=== PATIENT | female | born 1990 | race Caucasian/White ===

== ENCOUNTER 2018-10-05 23:40 | Inpatient (IN) | payer OTHER, BC ==
[2018-10-06] MEDS ORDERED: LACTATED RINGER'S 1,000 ML IV (00:19)
[2018-10-06] MEDS ORDERED: MISOPROSTOL 200 MCG TAB PR ×2 (00:30→20:00)
[2018-10-06] MEDS ORDERED: METHYLERGONOVINE 0.2 MG INJ IM ×2 (00:30→20:00)
[2018-10-06] MEDS ORDERED: CARBOPROST 250 MCG INJ IM ×2 (00:30→20:00)
[2018-10-06] MEDS ORDERED: OXYTOCIN 30 UNITS/LR 500 ML IV ×2 (00:30→20:00)
[2018-10-06] MEDS ORDERED: BUTORPHANOL 2 MG INJ IV (00:30)
[2018-10-06 00:41] LABS: RUPTURE FETAL MEMBRANES POSITIVE (NEGATIVE)
[2018-10-06] MEDS: LACTATED RINGER'S 1,000 ML IV ×3 (00:51→12:56)
[2018-10-06 00:57] LABS: ADD UMIC YES; UR ASCORBIC ACID NEGATIVE (NEGATIVE); UR BACTERIA FEW /HPF (NONE SEEN); UR BILIRUBIN (Dip) NEGATIVE (NEGATIVE); UR BLOOD (Dip) 2+ mg/dL (NEGATIVE); UR CLARITY CLOUDY (CLEAR); UR COLOR RED (YELLOW); UR GLUCOSE (Dip) NEGATIVE (NEGATIVE); UR KETONES (Dip) NEGATIVE (NEGATIVE); UR LEUKOCYTE ESTERASE (Dip) 1+ Leu/ul (NEGATIVE); UR MUCUS FEW /HPF (NONE SEEN); UR NITRITE (Dip) NEGATIVE (NEGATIVE); UR RBC 21 /HPF (0-5); UR SPECIFIC GRAVITY (Dip) 1.008 (1.003-1.030); UR SQUAMOUS EPITHELIAL CELL MANY /HPF (FEW); UR TOTAL PROTEIN (Dip) 2+ mg/dl (NEGATIVE); UR UROBILINOGEN (Dip) NEGATIVE (NEGATIVE); UR WBC 30 /HPF (0-5)
[2018-10-06] MEDS: LABETALOL HCL 20MG INJ IV ×2 (00:58→01:57)
[2018-10-06] MEDS: AMPICILLIN 2 GM/NS (PMX) 100 ML IV (01:14)
[2018-10-06 01:17] LABS: ADD MAN DIFF? NO
[2018-10-06 01:24] LABS: ABNORMAL IP MESSAGE 1; BASOPHIL # 0.1 10^3/ul (0.0-0.1); BASOPHILS % 0.6 % (0.0-2.0); EOSINOPHILS # 0.1 10^3/ul (0.0-0.5); EOSINOPHILS % 1.2 % (0.0-7.0); HEMATOCRIT 38.4 % (37.0-47.0); HEMOGLOBIN 12.9 g/dl (12.0-16.0); LYMPHOCYTES # 2.3 10^3/ul (0.8-2.9); LYMPHOCYTES % 21.1 % (15.0-51.0); MEAN CORPUSCULAR HEMOGLOBIN 29.2 pg (29.0-33.0); MEAN CORPUSCULAR HGB CONC 33.6 g/dl (32.0-37.0); MEAN CORPUSCULAR VOLUME 86.9 fl (82.0-101.0); MEAN PLATELET VOLUME 13.2 fl (7.4-10.4); MONOCYTE # 0.7 10^3/ul (0.3-0.9); MONOCYTES % 6.4 % (0.0-11.0); NEUTROPHIL # 7.5 10^3/ul (1.6-7.5); PLATELET COUNT 157 10^3/UL (140-415); RED BLOOD COUNT 4.42 10^6/ul (4.20-5.40); RED CELL DISTRIBUTION WIDTH 13.6 % (11.5-14.5)
[2018-10-06 01:24] LABS: WHITE BLOOD COUNT 10.8 10^3/ul (4.8-10.8)
[2018-10-06 01:25] LABS: POSITIVE DIFF @See below
[2018-10-06 01:44] LABS: INR 0.88; PARTIAL THROMBOPLASTIN TIME 28.2 Sec (23.0-35.0); PT RATIO 0.9
[2018-10-06 01:52] LABS: ALANINE AMINOTRANSFERASE 25 IU/L (13-69); ALBUMIN 3.4 g/dl (3.3-4.9); ALBUMIN/GLOBULIN RATIO 1.06; ALKALINE PHOSPHATASE 140 IU/L (42-121); ANION GAP 10 (5-13); ASPARTATE AMINO TRANSFERASE 28 IU/L (15-46); BILIRUBIN,INDIRECT 0.3 mg/dl (0-1.1); BILIRUBIN,TOTAL 0.3 mg/dl (0.2-1.3); BLOOD UREA NITROGEN 10 mg/dl (7-20); CALCIUM 9.9 mg/dl (8.4-10.2); CARBON DIOXIDE 21 mmol/L (21-31); CHLORIDE 106 mmol/L (97-110); CREATININE 0.54 mg/dl (0.44-1.00); Estimated GFR > 60 mL/min (>60); GLUCOSE 94 mg/dl (70-220); SODIUM 137 mmol/L (135-144); TOTAL PROTEIN 6.6 g/dl (6.1-8.1); URIC ACID 6.6 mg/dl (3.1-7.9)
[2018-10-06] MEDS: MAGNESIUM SULFATE 4 GM/100 ML 100 ML IV (02:06)
[2018-10-06] MEDS: MAGNESIUM SULFATE 20 GM/500 ML 500 ML IV ×3 (02:17→22:30)
[2018-10-06 02:22] LABS: HEPATITIS B SURFACE ANTIGEN NEGATIVE (NEGATIVE)
[2018-10-06] MEDS: OXYTOCIN 30 UNITS/LR 500 ML IV ×4 (02:56→22:40)
[2018-10-06] MEDS: hydrALAzine 20 MG INJ IV (05:21)
[2018-10-06] MEDS: AMPICILLIN 1 GM/NS (PMX) 50 ML IV ×5 (05:24→20:30)
[2018-10-06] MEDS: ASPIRIN 81 MG TAB PO (05:41)
[2018-10-06 07:00] LABS: MAGNESIUM 3.8 mg/dl (1.7-2.5)
[2018-10-06] MEDS ORDERED: FENTAnyl 2MCG/ML-ROPIV 0.2% 100 ML (08:31)
[2018-10-06] MEDS ORDERED: NALOXONE (0.4 MG/ML) INJ IV (09:00)
[2018-10-06] MEDS ORDERED: ONDANSETRON 4 MG INJ IV ×2 (09:00→20:00)
[2018-10-06] MEDS ORDERED: FENTAnyl 2MCG/ML-ROPIV 0.2% 100 ML BAG EPI (09:00)
[2018-10-06] MEDS ORDERED: EPHEDrine SULFATE 50 MG/5 ML SYG IV (09:00)
[2018-10-06] MEDS ORDERED: DIPHENHYDRAMINE 50 MG INJ IV (09:00)
[2018-10-06 12:26] LABS: MAGNESIUM 5.4 mg/dl (1.7-2.5)
[2018-10-06] MEDS: MINERAL OIL LIGHT 10 ML VIAL TOP (19:37)
[2018-10-06] MEDS: LIDOCAINE 1% (MPF) 30 ML INJ INJ (19:37)
[2018-10-06] MEDS ORDERED: DIPHENHYDRAMINE 25 MG CAP PO (20:00)
[2018-10-06] MEDS ORDERED: MAGNESIUM HYDROXIDE 30ML CUP PO (20:00)
[2018-10-06] MEDS ORDERED: LANOLIN HPA 1 PKT TOP (20:00)
[2018-10-06] MEDS ORDERED: HYDROCODONE/APAP (5/325) TAB PO ×2 (20:00)
[2018-10-06] MEDS ORDERED: NA PHOSPHATE/BIPHOS 133 ML ENEMA PR (20:00)
[2018-10-06] MEDS ORDERED: METHYLERGONOVINE 0.2 MG TAB PO (20:00)
[2018-10-06] MEDS ORDERED: ZOLPIDEM 5 MG TAB PO (20:00)
[2018-10-06] MEDS ORDERED: IBUPROFEN 600 MG TAB PO (20:00)
[2018-10-06] MEDS: LABETALOL 200 MG TAB PO (20:43)
[2018-10-06] MEDS: IBUPROFEN 600 MG TAB PO (21:27)
[2018-10-06 21:49] LABS: RAPID PLASMA REAGIN NONREACTIVE (NR)
[2018-10-06] MEDS: SENNA/DOCUSATE NA (8.6MG/50MG) TAB PO (22:40)
[2018-10-06] MEDS: LACTATED RINGER'S 1,000 ML IV* (22:40)
[2018-10-07] MEDS: AMPICILLIN 1 GM/NS (PMX) 50 ML IV ×2 (00:30→04:30)
[2018-10-07] MEDS: BENZOCAINE 20% 56 ML SPRAY TOP (00:47)
[2018-10-07] MEDS: WITCH HAZEL/GLYCERIN PAD PR (00:47)
[2018-10-07 01:12] LABS: MAGNESIUM 4.7 mg/dl (1.7-2.5)
[2018-10-07] MEDS: LACTATED RINGER'S 1,000 ML IV ×3 (01:30→21:25)
[2018-10-07] MEDS: MAGNESIUM SULFATE 20 GM/500 ML 500 ML IV (03:31)
[2018-10-07] MEDS: LACTATED RINGER'S 1,000 ML IV* (04:00)
[2018-10-07 08:36] LABS: ADD MAN DIFF? NO
[2018-10-07 08:38] LABS: WHITE BLOOD COUNT 17.1 10^3/ul (4.8-10.8)
[2018-10-07 08:38] LABS: ABNORMAL IP MESSAGE 1; BASOPHILS % 0.2 % (0.0-2.0); EOSINOPHILS # 0.1 10^3/ul (0.0-0.5); EOSINOPHILS % 0.5 % (0.0-7.0); HEMATOCRIT 29.8 % (37.0-47.0); HEMOGLOBIN 10.1 g/dl (12.0-16.0); LYMPHOCYTES % 11.5 % (15.0-51.0); MEAN CORPUSCULAR HEMOGLOBIN 29.7 pg (29.0-33.0); MEAN CORPUSCULAR HGB CONC 33.9 g/dl (32.0-37.0); MEAN CORPUSCULAR VOLUME 87.6 fl (82.0-101.0); MEAN PLATELET VOLUME 13.2 fl (7.4-10.4); MONOCYTE # 1.1 10^3/ul (0.3-0.9); MONOCYTES % 6.3 % (0.0-11.0); NEUTROPHIL # 13.7 10^3/ul (1.6-7.5); PLATELET COUNT 149 10^3/UL (140-415)
[2018-10-07 08:39] LABS: POSITIVE DIFF @See below
[2018-10-07] MEDS: LABETALOL 200 MG TAB PO ×2 (08:49→21:47)
[2018-10-07] MEDS: SENNA/DOCUSATE NA (8.6MG/50MG) TAB PO ×2 (08:49→21:47)
[2018-10-07 09:23] LABS: MAGNESIUM 4.6 mg/dl (1.7-2.5)
[2018-10-07 12:33] LABS: MAGNESIUM 4.2 mg/dl (1.7-2.5)
[2018-10-07 18:38] LABS: MAGNESIUM 3.7 mg/dl (1.7-2.5)
[2018-10-08] MEDS: LACTATED RINGER'S 1,000 ML IV ×3 (00:19→16:19)
[2018-10-08 08:23] LABS: ADD MAN DIFF? NO
[2018-10-08 08:31] LABS: BASOPHILS % 0.2 % (0.0-2.0); EOSINOPHILS # 0.1 10^3/ul (0.0-0.5); EOSINOPHILS % 1.1 % (0.0-7.0); HEMATOCRIT 30.9 % (37.0-47.0); LYMPHOCYTES # 2.4 10^3/ul (0.8-2.9); LYMPHOCYTES % 18.2 % (15.0-51.0); MEAN CORPUSCULAR HEMOGLOBIN 28.7 pg (29.0-33.0); MEAN CORPUSCULAR HGB CONC 32.4 g/dl (32.0-37.0); MEAN CORPUSCULAR VOLUME 88.5 fl (82.0-101.0); MEAN PLATELET VOLUME 12.9 fl (7.4-10.4); MONOCYTE # 0.7 10^3/ul (0.3-0.9); MONOCYTES % 5.2 % (0.0-11.0); NEUTROPHIL # 9.7 10^3/ul (1.6-7.5); NEUTROPHILS % 73.7 % (39.0-77.0); PLATELET COUNT 187 10^3/UL (140-415); RED BLOOD COUNT 3.49 10^6/ul (4.20-5.40); RED CELL DISTRIBUTION WIDTH 14.6 % (11.5-14.5)
[2018-10-08 08:31] LABS: WHITE BLOOD COUNT 13.1 10^3/ul (4.8-10.8)
[2018-10-08] MEDS: SENNA/DOCUSATE NA (8.6MG/50MG) TAB PO (09:00)
[2018-10-08] MEDS: VARICELLA VACCINE LIVE/PF 1,350 UNIT/0.5 ML ML SC* (09:00)
[2018-10-08] MEDS: MEASLES,MUMPS,RUBELLA VACCINE INJ SC* (09:00)
[2018-10-08] MEDS: LABETALOL 200 MG TAB PO (09:27)
[2018-10-08] MEDS: DIPHTH/TET/ACEL PERTUSS (ADULT) 0.5 ML VIAL IM* (15:35)
== END 2018-10-08 17:10 | disposition home or self-care (01) | DRG 807 ==
LOC: OBT 23:40 → L-D 23:40 → PP1 10-06 22:34
PROC: 10D07Z6 Extraction of Products of Conception, Vacuum, Via Natural or Artificial Opening (ICD-10-PCS; principal; 2018-10-06)
PROC: 0W8NXZZ Division of Female Perineum, External Approach (ICD-10-PCS; 2018-10-06)
DX: O13.4 Gestational [pregnancy-induced] hypertension without significant proteinuria, complicating childbirth (principal); Z37.0 Single live birth; O76 Abnormality in fetal heart rate and rhythm complicating labor and delivery; O99.214 Obesity complicating childbirth; O99.284 Endocrine, nutritional and metabolic diseases complicating childbirth; E61.1 Iron deficiency; E66.01 Morbid (severe) obesity due to excess calories; Z3A.38 38 weeks gestation of pregnancy; Z23 Encounter for immunization
CPT/HCPCS: 76815; 76818; 80053; 81001; 83735; 84112; 84560; 85025; 85384; 85610; 85730; 86592; 86850; 86900; 86901; 87340; 90715; 90716; 99464